=== PATIENT | female | born 1950 | race Caucasian/White ===

== ENCOUNTER 2020-07-22 12:37 | Day surgery (SDC) | payer MEDICARE ==
[2020-07-15 15:47] LABS: BASOPHILS % (AUTO) 0.4 % (0.0-5.0); EOSINOPHILS % (AUTO) 1.7 % (0.0-8.0); HEMATOCRIT 41.4 % (36-48); LYMPHOCYTES % (AUTO) 24.8 % (21.0-51.0); MEAN CORPUSCULAR HEMOGLOBIN 28.5 pg (27.0-33.0); MEAN CORPUSCULAR HGB CONC 32.4 g/dL (32.0-36.0); MEAN CORPUSCULAR VOLUME 88.1 fL (79-99); MONOCYTES % (AUTO) 5.8 % (3.0-13.0); NEUTROPHILS % (AUTO) 66.8 % (40.0-77.0); PLATELET COUNT (AUTO) 450 K/uL (130-400); RED CELL DISTRIBUTION WIDTH 14.3 % (11.0-15.5); WHITE BLOOD COUNT (AUTO) 13.3 K/uL (4.8-10.8)
[2020-07-15 16:09] LABS: CREATININE 0.8 mg/dL (0.5-1.5); POTASSIUM 4.2 mmol/L (3.5-5.1)
--- NOTE | 2020-07-21 11:59 | NUR ---
Reported ekg result to Doctor Vogt , no new orders.
--- NOTE | 2020-07-21 12:57 | NUR ---
DOCTOR TATUM WAS NOTIFIED OF WBC 13.3 AND PLT OF 450. NO NEW ORDERS.
[~2020-07-22] VITALS: Ht 166.4 cm; Wt 94.3 kg
[2020-07-22] VITALS (16 sets, daily range): BP systolic 114–165; BP diastolic 75–92
[~2020-07-22 12:37] MED LIST: ENAL20TA18 PO; FURO20TA4 PO; NORETHINDRONE PO
[2020-07-22] MEDS ORDERED: LACTATED RINGERS 1000ML 1,000 ML IV ONE (13:16)
[2020-07-22] MEDS ORDERED: SUCCINYLCHOLINE CHLORIDE 20 MG/ML 10 ML VIAL ONE (14:05)
[2020-07-22] MEDS ORDERED: LIDOCAINE PF 2% 5ML ABBOJECT ONE (14:05)
[2020-07-22] MEDS ORDERED: PROPOFOL 10 MG/ML 20ML VIAL IV ONE (14:05)
[2020-07-22] MEDS ORDERED: MIDAZOLAM HCL 1 MG/ML 2ML VIAL ONE (14:06)
[2020-07-22] MEDS ORDERED: FENTANYL CITRATE PF 50 MCG/1 ML 2ML VIAL ONE (14:06)
[2020-07-22] MEDS ORDERED: ONDANSETRON HCL 4 MG/2 ML VIAL ONE (14:23)
[2020-07-22] MEDS ORDERED: DEXAMETHASONE SOD PHOSPHATE 10MG/ML 1ML VIAL ONE (14:23)
--- NOTE | 2020-07-22 16:40 | NUR ---
PATIENT DISCHARGED FROM FACILITY VIA WHEELCHAIR BY NURSE. PATIENT ASSISTED INTO PRIVATE VEHICLE DRIVEN BY SPOUSE.
== END 2020-07-22 16:40 | disposition home or self-care (01) ==
LOC: DAH 12:37
PROVIDERS: ATTEND Specialist
DX: N95.0 Postmenopausal bleeding (principal); I10 Essential (primary) hypertension; E66.9 Obesity, unspecified; Z20.828 Contact with and (suspected) exposure to other viral communicable diseases; Z79.899 Other long term (current) drug therapy
CPT/HCPCS: 36415; 58120; 80048; 85025; 93005; A4221; A4222; A4223; A4351; A4663; A6260; C9803; J0330; J1100; J2001; J2250; J2405; J2704; J3010; J7120; U0003

== ENCOUNTER → 2023-07-31 | Outpatient (CLI) | payer MEDICARE ==
[~2023-07-31] MED LIST changes: +ENAL-91 PO; -ENAL20TA18 PO
== END | disposition home or self-care (01) ==
LOC: RAH 10:21
PROVIDERS: ATTEND Internal Medicine Endocrinology, Diabetes & Metabolism
DX: E21.0 Primary hyperparathyroidism (principal)
CPT/HCPCS: 76536

== ENCOUNTER → 2023-08-02 | Outpatient (CLI) | payer MEDICARE | END | disposition home or self-care (01) | LOC: RAH 09:23 | PROVIDERS: ATTEND Internal Medicine Endocrinology, Diabetes & Metabolism | DX: E21.0 Primary hyperparathyroidism (principal) | CPT/HCPCS: 78070; A9500 ==

== ENCOUNTER → 2024-04-17 | Outpatient (CLI) | payer MEDICARE | END | disposition home or self-care (01) | LOC: RAH 12:20 | PROVIDERS: ATTEND Internal Medicine Endocrinology, Diabetes & Metabolism | DX: E04.2 Nontoxic multinodular goiter (principal) | CPT/HCPCS: 76536 ==

== ENCOUNTER → 2024-05-28 | Outpatient (CLI) | payer MEDICARE | END | disposition home or self-care (01) | LOC: RAH 13:32 | PROVIDERS: ATTEND Family Medicine | DX: M16.11 Unilateral primary osteoarthritis, right hip (principal); M25.551 Pain in right hip | CPT/HCPCS: 73502 ==

== ENCOUNTER 2024-06-26 07:51 | Observation (INO) | payer MEDICARE ==
[~2024-06-26] VITALS: Ht 165.1 cm; Wt 91.4 kg
--- NOTE | 2024-06-26 08:06 | EKG ---
[facility] Test Date: 2024-06-26 Test Time: 08:02:09 Pat Name: YOUNG BRADFORD Department: [facility] Room: 204 Gender: F Hourly Team Members: [id number] : 1950 Requested By: REYNA KEYS Order Number: [id number] Reading MD: Sanjuana Baker Measurements Intervals [place] Rate: 67 P: 79 CT: 187 QRS: 43 QRSD: 84 T: 54 QT: 394 QTc: 416 Interpretive Statements Sinus rhythm Compared to ECG 07/15/2020 15:14:44 No significant changes Electronically Signed On 06-28-2024 07:22:48 CDT by Sanjuana Baker Please click the below link to view image of tracing.
--- NOTE | 2024-06-26 08:10 | ERN ---
General Chief Complaint: Dizzy/Light Headed Stated Complaint: DIZZINESS Time Seen by MD: 07:53 History of Present Illness Initial Comments 74 years old female patient with past medical history of Hypertension who presents to the emergency department with complains of dizziness, nauseas, and numbness on the right side of her face. Allergies: Coded Allergies: No Known Drug Allergies (Verified Allergy, Unknown, 07/21/20) Home Meds Reported Medications [Norethindrone] No Conflict Check, 5 MG PO DAILY 07/21/20 Furosemide (Furosemide) 20 Mg Tablet, 20 MG PO DAILY, TAB 07/21/20 Enalapril Maleate (Enalapril Maleate) 20 Mg Tablet, 20 MG PO DAILY, TAB 07/21/20 Past Medical History Past Medical History: Hypertension Past Surgical History: Other ROS Dictation Constitutional: No appetite loss, No fevers, chills , No night sweats, No weakness, fatigue Eye: No vision change, No redness, pain or discharge ENT: No hearing loss, ear pain or discharge, No nose bleeds, No sore throat, Neck: No swelling. pain or stiffness Respiratory: No cough, shortness of breath, wheezing Cardiovascular: No chest pain,, palpitations, dyspnea, No edema Gastrointestinal: Nausea, No abdominal pain, vomiting, No diarrhea, constipation Genitourinary: No painful urination, No blood in urine, No urinary incontinence, No frequency or urgency Musculoskeletal: No joint pain, muscle pain, swelling or stiffness Neurological: dizziness, right side face numbness, No tingling, No weakness, No tremors or seizures Psychiatric: : No depression, No anxiety, No sleep disturbance, No Memory changes Lymphatic: No easy bruising, No bleeding tendencies , No swollen lymph nodes A 13-point Review of Systems was assessed, all of which are negative except for HPI or as indicated above. Physical Exam Physical Exam Dictation General: Alert & Oriented, No acute distress. EENT: No conjunctival redness or discharge noted Tympanic membranes are clear, Normal hearing, Oral mucosa is moist, No pharyngeal erythema, No nasal discharge, No oral lesions. Neck: Non-tender, No jugular vein distention, No lymphadenopathy, No thyromegaly, Supple. Respiratory: Lungs are clear to auscultation, Respirations are non-labored, Breath sounds are equal, No chest wall tenderness, _. Cardiovascular: Normal rate, Normal rhythm, No murmur, Good pulses equal in all extremities, Normal peripheral perfusion, No edema. Gastrointestinal: Soft, Non-tender, Non-distended, Normal bowel sounds, No organomegaly, _. Musculoskeletal: Normal range of motion, Normal strength, No tenderness, No swelling, No deformity, Normal gait. Integumentary: Warm, Dry, [place], Intact, No pallor, No rash. Neurologic: Alert, Oriented x4, Normal sensory, No focal defects Psychiatric: Cooperative, Appropriate mood & affect, Normal judgement, Non- suicidal. Results Laboratory and Microbiology Lab and Micro Result Laboratory Tests Test 06/26/24 08:23 White Blood Count 15.9 K/uL (4.8-10.8) H Red Blood Count 4.56 MIL/uL (4.00-5.50) Hemoglobin 13.2 g/dL (12.0-16.0) Hematocrit 39.8 % (36-48) Mean Corpuscular Volume 87.3 fL (79-99) Mean Corpuscular Hemoglobin 28.9 pg (27.0-33.0) Mean Corpuscular Hemoglobin Concent 33.2 g/dL (32.0-36.0) Red Cell Distribution Width 13.2 % (11.0-15.5) Platelet Count 293 K/uL (130-400) Mean Platelet Volume 9.7 fL (7.5-10.5) Immature Granulocyte % (Auto) 0.5 % (0-1) Neutrophils (%) (Auto) 80.8 % (40.0-77.0) H Lymphocytes (%) (Auto) 13.2 % (21.0-51.0) L Monocytes (%) (Auto) 4.6 % (3.0-13.0) Eosinophils (%) (Auto) 0.6 % (0.0-8.0) Basophils (%) (Auto) 0.3 % (0.0-5.0) Neutrophils # (Auto) 12.9 K/uL (1.8-7.7) H Lymphocytes # (Auto) 2.1 K/uL (1.0-4.8) Monocytes # (Auto) 0.7 K/uL (0.1-1.0) Eosinophils # (Auto) 0.09 K/uL (0.00-0.70) Basophils # (Auto) 0.05 K/uL (0.00-0.20) Absolute Immature Granulocyte (auto 0.08 K/uL (0-1) Nucleated Red Blood Cells 0.0 % (0.0-0.19) Sodium Level 134 mmol/L (136-145) L Potassium Level 4.0 mmol/L (3.5-5.1) Chloride Level 102 mmol/L (101-111) Carbon Dioxide Level 29 mmol/L (21-32) Blood Urea Nitrogen 17 mg/dL (7-18) Creatinine 1.0 mg/dL (0.5-1.0) Glomerular Filtration Rate Calc 60 mL/min (>90) Random Glucose 133 mg/dL (70-105) H Total Calcium 9.9 mg/dL (8.5-10.1) Troponin I High Sensitivity < 4 ng/L (4-50) L MDM MDM Potential differential diagnoses include: * * * * Assessment: I will order a CBC and CMP and administer medications according to the patient's complaint. Will order 1 Liter of LR for adequate hydration, and......... I will re-evaluate the patient after treatment and diagnostic exams have returned to determine whether they require further testing, can be safely discharged home, or need admission for further treatment and evaluation. Given the social determinants of health affecting care, including literacy, acc ess to medical care, prescription drug management, and [id number] drugs, I will ensure that treatment plans are tailored accordingly. Revaluation : Patient is alert and oriented. States she feels a lot better . Disposition: Will discharge patient at this time with prescription of ...... PO and instructions to follow up with PCP for further evaluation and treatment. ED Course Orders Procedure Category Date Status Time 12 Lead Ekg Tracing- EKG 06/26/24 Complete Technical 07:53 Maintain Iv CPOE 06/26/24 Transmitted 07:53 Iv Insertion CPOE 06/26/24 Transmitted 07:53 Cardiac Monitoring CPOE 06/26/24 Transmitted 07:53 Pulse Oximetry With CPOE 06/26/24 Transmitted Vs And Prn 07:53 Cbc With Differential LAB 06/26/24 Complete 07:53 Activity: Br W/Brp CPOE 06/26/24 Transmitted With Assist 07:53 Troponin I High LAB 06/26/24 Complete Sensitivity 07:53 Urinalysis Profile LAB 06/26/24 Logged 07:53 Basic Metabolic Panel LAB 06/26/24 Complete 07:53 Ct Head/Brain W/O CT 06/26/24 Resulted Contrast 08:02 Hydralazine 20mg Inj PHA 06/26/24 Complete (Apresoline 20mg In 08:30 Current Medications Medications (Trade) Dose Ordered Sig/Marcelle Route PRN Reason Start Time Stop Time Status Last Admin Dose Admin Hydralazine HCl (APRESOLine 20MG INJ) 10 mg ONCE ONCE IV 06/26/24 08:30 06/26/24 08:31 DC Vital Signs Date Time Temp Pulse Resp B/P (MAP) Pulse Ox O2 Delivery O2 Flow Rate FiO2 06/26/24 08:00 97.9 72 20 192/89 98 Room Air* 0 21 06/26/24 07:55 98.8 72 20 192/89 99 Room Air DX & DISP Disposition: Inpatient Decision to Admit Date: Jun 26, 2024 Decision to Admit Time: 09:31 Departure Impression: Primary Impression: Hypertensive urgency Additional Impression: Dizziness Condition: Stable Referrals: ADENIKE MUNOZ MD (PCP) AMANDA CONTRERAS MD Jun 26, 2024 08:10 REYNA KEYS MD Jun 26, 2024 09:32
[2024-06-26 08:33] LABS: BASOPHILS # (AUTO) 0.05 K/uL (0.00-0.20); BASOPHILS % (AUTO) 0.3 % (0.0-5.0); EOSINOPHILS # (AUTO) 0.09 K/uL (0.00-0.70); EOSINOPHILS % (AUTO) 0.6 % (0.0-8.0); HEMATOCRIT 39.8 % (36-48); IMMATURE GRANULOCYTE ABSOLUTE 0.08 K/uL (0-1); LYMPHOCYTES # (AUTO) 2.1 K/uL (1.0-4.8); LYMPHOCYTES % (AUTO) 13.2 % (21.0-51.0); MEAN CORPUSCULAR HEMOGLOBIN 28.9 pg (27.0-33.0); MEAN CORPUSCULAR HGB CONC 33.2 g/dL (32.0-36.0); MEAN CORPUSCULAR VOLUME 87.3 fL (79-99); MONOCYTES # (AUTO) 0.7 K/uL (0.1-1.0); MONOCYTES % (AUTO) 4.6 % (3.0-13.0); NEUTROPHILS # (AUTO) 12.9 K/uL (1.8-7.7); NEUTROPHILS % (AUTO) 80.8 % (40.0-77.0); PLATELET COUNT (AUTO) 293 K/uL (130-400); RED BLOOD CELL COUNT(AUTO) 4.56 MIL/uL (4.00-5.50); RED CELL DISTRIBUTION WIDTH 13.2 % (11.0-15.5); WHITE BLOOD COUNT (AUTO) 15.9 K/uL (4.8-10.8)
--- NOTE | 2024-06-26 09:27 | HMCIMG ---
CT HEAD/BRAIN W/O CONTRAST HISTORY: Dizziness COMPARISON: None TECHNIQUE: Multiple sequential axial images of the head were obtained from the base of the skull through vertex. Patient was not given contrast through intravenous route. FINDINGS: The ventricles and extraventricular CSF spaces are dilated consistent with cerebral atrophy. Nonspecific white matter changes seen. There is no midline shift, mass effect or herniation. No acute intracranial bleed is seen. Visualized portion of the paranasal sinuses are grossly within normal limits. IMPRESSION: 1. No acute intracranial bleed is seen. 2. Atrophy with white matter changes. CT was performed with one or more following dose reduction techniques: automated exposure control, adjustment of the mA and kv according to patient's size, or use of a iterative reconstruction technique.
[2024-06-26] MEDS: hydrALAZine 20MG/ML VIAL IV ONE (09:46)
[2024-06-26] MEDS ORDERED: hydrALAZine 20MG/ML VIAL IV PRN (10:00)
[2024-06-26] MEDS ORDERED: doCUSate SODIUM 100 MG CAP PO PRN (10:00)
[2024-06-26] MEDS ORDERED: LAbetaLOL 20MG SYG IV PRN (10:00)
[2024-06-26] MEDS ORDERED: acetaMINOPHEN 650 MG SUPPOSITORY RC PRN (10:00)
[2024-06-26] MEDS: CEFTRIAXONE 2GM VIAL IVPB SCH (10:18)
[2024-06-26] MEDS: hydrALAZine 25MG TABLET PO SCH (10:18)
--- NOTE | 2024-06-26 10:29 | HMCIMG ---
US RENAL SONOGRAM HISTORY: Hypertensive urgency COMPARISON: None TECHNIQUE: Renal and bladder ultrasound study was performed. FINDINGS: The right kidney measures 11.2 x 4.6 x 5.5 cm. The left kidney measures 11.6 x 4.2 x 5.5 cm. No evidence of hydronephrosis is seen of either kidney. Both kidneys are seen. Bladder is poorly distended. IMPRESSION: 1. No hydronephrosis is seen.
--- NOTE | 2024-06-26 10:30 | HMCIMG ---
US CAROTID DUPLEX HISTORY: Dizziness COMPARISON: None TECHNIQUE: Duplex carotid arterial Doppler ultrasound study was performed. FINDINGS: The common, internal and external carotid arteries are visualized. The peak systolic velocities of right common carotid artery is 69 centimeters per second, right internal carotid artery is 88 centimeters per second, right external carotid artery is 84 centimeters per second, and right vertebral artery is 47 centimeters per second. Right internal carotid artery to right common carotid artery ratio is 1.3. Right vertebral artery is seen with antegrade flow. The peak systolic velocities of left common carotid artery is 84 centimeters per second, left internal carotid artery is 113 centimeters per second, left external carotid artery is 73 centimeters per second, and left vertebral artery is 41 centimeters per second. Left internal carotid artery to left common carotid artery ratio is 1.2. Left vertebral artery is seen with antegrade flow. IMPRESSION: 1. No hemodynamically significant lesion is seen of either extracranial carotid artery system.
[2024-06-26 11:22] LABS: APPEARANCE,URINE CLEAR (CLEAR); BILIRUBIN,URINE NEGATIVE (NEGATIVE); COLOR,URINE LIGHT-YELLOW (YELLOW); GLUCOSE, URINE (UA) NEGATIVE (NEGATIVE); KETONES,URINE NEGATIVE (NEGATIVE); LEUKOCYTE ESTERASE ,URINE NEGATIVE Leu/uL (NEGATIVE); NITRATE,URINE NEGATIVE (NEGATIVE); OCCULT BLOOD,URINE NEGATIVE (NEGATIVE); PROTEIN,URINE NEGATIVE (NEGATIVE); UROBILINOGEN,URINE 0.2 mg/dL (0.2-1.0)
[2024-06-26 11:30] LABS: ADD UA MICROSCOPIC NO
[2024-06-26] MEDS: mecliZINE HCL 25 MG TABLET PO ONE (14:09)
[2024-06-26] MEDS: ondanSETRON 4MG INJ IVP ONE (14:09)
[2024-06-26] MEDS ORDERED: ENAL-91 PO (14:34)
[2024-06-26] MEDS: acetaMINOPHEN 325 MG TAB PO PRN (16:42)
--- NOTE | 2024-06-26 17:01 | HP ---
[facility] HISTORY & PHYSICAL Date Patient Seen: Jun 26, 2024 Time of Visit: 17:01 Supervising Physician: Yessi Choudhury MD Primary Care Physician: Holli Bernal MD [facility] Inpatient Consults: Neurology Dr. Brown PROBLEM LIST: Dizziness, POA R/O ischemic CVA Leukocytosis, POA Hyperglycemia, POA Essential hypertension History of bilateral thyroid nodules. Obesity with a BMI of 34.3 Suspected DEB, undiagnosed and untreated HPI: This is a 74-year-old obese female with a history of hypertension, bilateral thyroid nodules who came into the emergency department for dizziness that she fell when she woke up this morning around 3-5 in the morning. Last known normal was 22:30 last night when patient went to sleep. This morning when she open her eyes she felt dizzy and diaphoretic. Denies any chest pain palpitations or shortness of breath. She does however report some nausea due to the dizziness. She also reports some numbness to her right upper lip. No other focal weakness reported. In the emergency department CT of the head was done no acute intracranial findings noted. Per ED physician wanted patient admitted for vertigo and he consulted Neurology. Assessment of the patient she is awake alert and oriented x3 no focal weakness noted. Although she continues with dizziness after taking meclizine and continues with some numbness to her lip. On nose to finger test this seems to be some trouble with coordination to her right hand. Otherwise blood pressure is 148/75 heart rate 86 O2 sat 97% on room air with respirations of 20 unlabored. She has been afebrile since admission. On laboratory patient does have a white count elevated at 15.9 and neutrophils 80.8, sodium 1likely pseudo hyponatremia due to hyperglycemia random [id number] mg/dL troponin was less than four ammonia was normal TSH was 1.04. No hemodynamic instability seen on bilateral ultrasound of the carotids. Pending an MRI of the brain without contrast. PAST MEDICAL HX: Hypertension Bilateral thyroid nodules PAST SURGICAL HX: Postmenopausal bleeding status post D&C in 2019 SOCIAL HISTORY: No tobacco, ETOH, or illicit drug use Coded Allergies: No Known Drug Allergies (Verified Allergy, Unknown, 07/21/20) REVIEW OF SYSTEMS: General: No malaise or fever. Neurological: Yes for dizziness, slight numbness to upper lip. HEENT: No nasal congestion or nasal secretion. Respiratory: No cough, shortness of breath, or wheezing Cardiac: No chest pain or palpitations. Gastrointestinal: No vomiting or diarrhea. Genitourinary: No dysuria hematuria. Skin: No rashes or lesions. Hematological: No bruises or bleeding. Musculoskeletal: No joint pains or arthralgias. Psychiatric: No depression or panic attacks. PHYSICAL EXAM: GENERAL: alert, weak, awake oriented x 3 HEENT: EOMI, Sclera non icteric, moist mucosa NECK: Supple, no JVD, trachea midline LUNGS: Clear breath sounds bilaterally. No wheezes HEART: Regular rate and rhythm. Normal S1 and S2, without murmurs ABD: Abdomen soft, nontender. Bowel sounds present EXT: No clubbing cyanosis or edema NEURO: Alert and oriented to person, follows commands , reports dizziness, numbness to lip, NIH stroke scale : 1A: Level of consciousness: 0 1B: Ask months and age: 0 1C: Blinks eyes and squeezes hand: 0 2: Horizontal extraocular movements: 0 3. : Visual tosc[place]: 0 4.: Facial palsy: 0 5A: Left arm motor drift: 0 5 B: Right arm motor drift: 0 6A: Left leg motor drift: 0 6 B: Right leg motor drift: 0 7.: Limb ataxia: 1 8.: Sensation: 1. 9.: Language aphasia: 0 10.: Dysarthria 0 11.: Extension/inattention: 0 Total: 2 Vital Signs (last 8hr) Date Time Temp Pulse Resp B/P (MAP) Pulse Ox O2 Delivery O2 Flow Rate FiO2 06/26/24 16:00 98.4 79 20 159/78 99 Room Air* 0 21 06/26/24 11:50 97.9 86 20 148/75 97 Room Air* 0 21 06/26/24 10:19 86 20 181/84 98 Room Air* 0 21 06/26/24 09:45 97.9 80 20 176/80 99 Room Air* 0 21 LABS: Hematology Labs: Test 06/26/24 08:23 Range/Units White Blood Count 15.9 H 4.8-10.8 K/uL Red Blood Count 4.56 4.00-5.50 MIL/uL Hemoglobin 13.2 12.0-16.0 g/dL Hematocrit 39.8 36-48 % Mean Corpuscular Volume 87.3 79-99 fL Mean Corpuscular Hemoglobin 28.9 27.0-33.0 pg Mean Corpuscular Hemoglobin Concent 33.2 32.0-36.0 g/dL Red Cell Distribution Width 13.2 11.0-15.5 % Platelet Count 293 130-400 K/uL Mean Platelet Volume 9.7 7.5-10.5 fL Immature Granulocyte % (Auto) 0.5 0-1 % Neutrophils (%) (Auto) 80.8 H 40.0-77.0 % Lymphocytes (%) (Auto) 13.2 L 21.0-51.0 % Monocytes (%) (Auto) 4.6 3.0-13.0 % Eosinophils (%) (Auto) 0.6 0.0-8.0 % Basophils (%) (Auto) 0.3 0.0-5.0 % Neutrophils # (Auto) 12.9 H 1.8-7.7 K/uL Lymphocytes # (Auto) 2.1 1.0-4.8 K/uL Monocytes # (Auto) 0.7 0.1-1.0 K/uL Eosinophils # (Auto) 0.09 0.00-0.70 K/uL Basophils # (Auto) 0.05 0.00-0.20 K/uL Absolute Immature Granulocyte (auto 0.08 0-1 K/uL Nucleated Red Blood Cells 0.0 0.0-0.19 % Chemistry Labs: Test 06/26/24 10:43 06/26/24 08:23 Range/Units Ammonia < 10 L 11-32 umol/L Thyroid Stimulating Hormone (TSH) 1.04 0.36-3.74 uIU/mL Sodium Level 134 L 136-145 mmol/L Potassium Level 4.0 3.5-5.1 mmol/L Chloride Level 102 101-111 mmol/L Carbon Dioxide Level 29 21-32 mmol/L Blood Urea Nitrogen 17 7-18 mg/dL Creatinine 1.0 0.5-1.0 mg/dL Glomerular Filtration Rate Calc 60 >90 mL/min Random Glucose 133 H 70-105 mg/dL Total Calcium 9.9 8.5-10.1 mg/dL Troponin I High Sensitivity < 4 L 4-50 ng/L DIAGNOSTICS / RADIOLOGY RESULTS: PATIENT: ROLDAN BRADFORDZAARCELIA VASQUEZ MR#: [id number] : 1950 SEX: F AGE: 74 LOCATION: ED ORDER 4 STATUS: REG ER REPORT#: [id number] SERVICE 1 REASON: Dizziness ORDERING PHYSICIAN: REYNA KEYS MD PROCEDURE: HEAD WO - CT HEAD/BRAIN W/O CONTRAST CT HEAD/BRAIN W/O CONTRAST HISTORY: Dizziness COMPARISON: None TECHNIQUE: Multiple sequential axial images of the head were obtained from the base of the skull through vertex. Patient was not given contrast through intravenous route. FINDINGS: The ventricles and extraventricular CSF spaces are dilated consistent with cerebral atrophy. Nonspecific white matter changes seen. There is no midline shift, mass effect or herniation. No acute intracranial bleed is seen. Visualized portion of the paranasal sinuses are grossly within normal limits. IMPRESSION: 1. No acute intracranial bleed is seen. 2. Atrophy with white matter changes. CT was performed with one or more following dose reduction techniques: automated exposure control, adjustment of the mA and kv according to patient's size, or use of a iterative reconstruction technique. DICTATED BY: LEIGHTON AQUINO MD DATE: 06/26/24923 ELECTRONICALLY SIGNED BY: LEIGHTON AQUINO MD DATE: 06/26/24926 PLAN Maintain oxygenation above 94% Avoid hypotension Meclizine p.r.n. dizziness Aspirin 325 mg p.o. x1 then 81 mg daily Avoid hypoglycemia neurology recommendations MRI of the brain NS 500 mL x1 bolus Avoid hypotension Lipid panel in a.m. Hemoglobin A1c in a.m. PT for eval and recs NEURO: Minimize central acting medications as possible. Maintain fall precautions, adequate lighting during the day Awaiting neurology recommendations PULMONARY: Supplemental 02 as needed. Maintain aspiration precautions at all times CARDIOVASCULAR: Follow hemodynamics. Vital signs per facility protocol Telemetry monitoring GI & NUTRITION: Continue with nutritional support. Continue stool softeners and laxatives as needed. Heart healthy diet KIDNEYS & ELECTROLYTES: Strict monitoring of intake, output and overall fluid balance. Avoid nephrotoxic medications to the extent possible. Medications to be dosed according to renal function. Monitor electrolytes and replace as needed ENDOCRINE: Maintain blood glucose between 100-180 at all times. Hypoglycemia protocol in place INFECTIOUS DISEASE: Trend temperature, WBC and procalcitonin level Follow cultures, deescalate antibiotics as soon as possible. Panculture if new onset fever UA and urine culture Rocephin 2 g Q 24 hour ONCOLOGY/HEMATOLOGY/COAGULATION: Monitor for s/s of bleeding Monitor hemoglobin, coagulation studies as needed SKIN: Pressure ulcer prevention per facility protocol Specialty mattress ORTHO/REHAB: Continue PT/OT Prophylaxis: Continue GI and DVT prophylaxis Code Status: Full Resuscitation Disposition: TBD Other: Total patient care time exceeds 35 minutes excluding all procedures. JJ SHELDON [facility] Jun 26, 2024 17:01
[2024-06-26] MEDS: ALPRAZolam 0.5 MG TABLET PO ONE (17:16)
[2024-06-26] MEDS: ASPIRIN 325MG EC TAB PO ONE (17:17)
--- NOTE | 2024-06-26 18:41 | HMCIMG ---
MR BRAIN WO CON HISTORY: Dizziness COMPARISON: None TECHNIQUE: MRI of the brain was performed utilizing multiple pulse sequences in axial, coronal and sagittal planes. Patient was not given contrast through intravenous route. FINDINGS: The ventricles and extraventricular CSF spaces are nondilated for patient's age. There is no midline shift, mass effect or herniation. No subacute hemorrhage is seen. No MR evidence of acute infarct is seen in the diffusion weighted images. Cerebellar tonsils are in normal position. No evidence of mucoperiosteal thickening is seen of the visualized paranasal sinuses. No MR evidence of a mass lesion is seen in this noncontrast study. IMPRESSION: 1. No MR evidence of acute infarct is seen in the diffusion weighted images.
[2024-06-26] MEDS: 0.9% NACL 500ML IV.SOLN 500 ML IV SCH (19:30)
[2024-06-26] MEDS ORDERED: mecliZINE HCL 25 MG TABLET PO PRN (19:30)
[2024-06-26 22:05] VITALS: TEMP 98.4
--- NOTE | 2024-06-27 01:43 | HMCIMG ---
CHEST 1VW HISTORY: Sepsis COMPARISON: None FINDINGS: A frontal projection of the chest was obtained. Prominent interstitial markings are seen with possible superimposed infiltrates. The heart is normal in size. Degenerative changes are seen. No evidence of aortic calcification is seen. IMPRESSION: 1. Prominent interstitial markings are seen with possible superimposed infiltrates.
[2024-06-27 04:26] LABS: HEMATOCRIT 38.2 % (36-48); MEAN CORPUSCULAR HEMOGLOBIN 28.9 pg (27.0-33.0); MEAN CORPUSCULAR HGB CONC 32.5 g/dL (32.0-36.0); RED BLOOD CELL COUNT(AUTO) 4.29 MIL/uL (4.00-5.50); RED CELL DISTRIBUTION WIDTH 13.5 % (11.0-15.5); WHITE BLOOD COUNT (AUTO) 12.1 K/uL (4.8-10.8)
[2024-06-27 04:30] VITALS: BP 160/89; PULSE 64; RESP 18; TEMP 98
[2024-06-27 04:52] LABS: CREATININE 0.9 mg/dL (0.5-1.0); POTASSIUM 3.5 mmol/L (3.5-5.1); THYROID STIMULATING HORMONE 1.22 uIU/mL (0.36-3.74)
[2024-06-27] MEDS ORDERED: DEXTROSE 50%-WATER 50 ML DISP.SYRIN IV PRN (07:00)
[2024-06-27] MEDS ORDERED: PoTASSium chl 10% ELIXIR 20MEQ 20 MEQ/15 ML UDCUP PO PRN (07:00)
[2024-06-27] MEDS ORDERED: GLUCAGON 1MG KIT 1 MG ML IM PRN (07:00)
[2024-06-27] MEDS ORDERED: MAGNESIUM 2GM PREMIX 50ML 50 ML IV PRN (07:00)
[2024-06-27] MEDS ORDERED: PoTASSium chloRIDE 20MEQ/100ML 100 ML IV PRN (07:00)
--- NOTE | 2024-06-27 07:18 | CONS ---
CONSULTATION NOTE Date of Service: Jun 27, 2024 Reason for Consultation: EVALUATION OF DIZZINESS Requesting Physician: Hospitalist HISTORY OF PRESENT ILLNESS: This is a marilyn 74 years old right-handed lady that has a past medical history remarkable for obesity and essential hypertension who was admitted for evaluation and management of dizziness. The patient states being in her usual state of health when suddenly the patient started having dizziness. She describes her dizziness as an vertical room spinning sensation that was intermittent and exacerbated by body movement with associated nausea but no vomiting. She denied having any blurry vision headaches upper or lower extremity weakness numbness or tingling sensation. She checked her blood pressure and he was unreadable, took one dose of lisinopril 20 mg once a day and was brought into our emergency room. On arrival her blood pressure was higher than 190 mmHg systolic. The patient was started on antihypertensive medication. A CT scan of the head without contrast was negative for intracranial abnormalities. An MRI of the brain without contrast done yesterday while the patient was still having symptoms was negative for stroke. I was consulted for evaluation and management of dizziness. REVIEW OF SYSTEMS CONSTITUTIONAL: Denies fever, chills, or fatigue. HEAD/FACE: No signs of trauma. EENT: Denies eye pain, blurred vision, double vision, or light sensitivity. RESPIRATORY: Denies shortness of breath, cough, wheezing CARDIOVASCULAR: Denies chest pain, palpitation, syncope GASTROINTESTINAL/ABDOMINAL: Denies abdominal pain, constipation, diarrhea, nausea or vomiting GENITOURINARY: Denies dysuria or hematuria. MUSCULOSKELETAL: Denies joint pain, tenderness, or trauma. INTEGUMENTARY: Denies rash or itchiness NEUROLOGICAL/PSYCH: Positive for dizziness PAST MEDICAL HISTORY: Obesity hypertension PAST SURGICAL HISTORY: Noncontributory PAST SOCIAL HISTORY: No tobacco alcohol recreational drug abuse FAMILY HISTORY: No family history of stroke or seizures Coded Allergies: No Known Drug Allergies (Verified Allergy, Unknown, 07/21/20) PHYSICAL EXAM Mental status: The patient is alert, attentive, and oriented. Speech is clear and fluent with good repetition, comprehension, and naming. Pt recalls 3/3 objects at 5 minutes. Cranial nerves: CN II: Visual toscano are full to confrontation. CN III, IV, : At primary gaze, there is no eye deviation. CN V: Facial sensation is intact to pinprick in all 3 divisions bilaterally. Co rneal responses are intact. CN VII: Face is symmetric with normal eye closure and smile. CN VIII: Hearing is normal to rubbing fingers CN IX, X: Palate elevates symmetrically. Phonation is normal. CN XI: Head turning and shoulder shrug are intact CN XII: Tongue is midline with normal movements and no atrophy. Motor: There is no pronator drift of out-stretched arms. Muscle bulk and tone are normal. Strength is full bilaterally. Reflexes: Reflexes are 2+ and symmetric at the biceps, triceps, knees, and ankles. Plantar responses are flexor. Sensory: Light touch, pinprick, position sense, and vibration sense are intact in fingers and toes. Coordination: Rapid alternating movements and fine finger movements are intact. There is no dysmetria on ynrbye-fw-mhid and fxcz-aofw-bhmf. There are no abnormal or extraneous movements. Romberg is absent. Gait/Stance: Not evaluated NIH stroke scale: 0 Vital Sign (Last 24 Hours) 06/27/24 06/27/24 02:47 04:30 Temp 98.1 Pulse 64 Resp 18 B/P (MAP) 160/89 Pulse Ox 98 O2 Delivery Room Air O2 Flow Rate 0 FiO2 21 Intake & Output (last 24hrs) 06/26/24 06/26/24 06/27/24 15:00 23:00 07:00 Intake Total 200 ml Output Total 200 ml Balance 0 ml LABS: Laboratory: Test 06/27/24 04:11 06/26/24 10:43 06/26/24 10:34 06/26/24 08:23 Range/Units White Blood Count 12.1 H 4.8-10.8 K/uL Red Blood Count 4.29 4.00-5.50 MIL/uL Hemoglobin 12.4 12.0-16.0 g/dL Hematocrit 38.2 36-48 % Mean Corpuscular Volume 89.0 79-99 fL Mean Corpuscular Hemoglobin 28.9 27.0-33.0 pg Mean Corpuscular Hemoglobin Concent 32.5 32.0-36.0 g/dL Red Cell Distribution Width 13.5 11.0-15.5 % Platelet Count 297 130-400 K/uL Mean Platelet Volume 10.0 7.5-10.5 fL Nucleated Red Blood Cells 0.0 0.0-0.19 % Sodium Level 139 136-145 mmol/L Potassium Level 3.5 3.5-5.1 mmol/L Chloride Level 107 101-111 mmol/L Carbon Dioxide Level 27 21-32 mmol/L Blood Urea Nitrogen 11 7-18 mg/dL Creatinine 0.9 0.5-1.0 mg/dL Glomerular Filtration Rate Calc 68 >90 mL/min Random Glucose 101 70-105 mg/dL Hemoglobin A1c 6.0 4.0-6.0 % Estimated Average Glucose (eAG) 126 70-126 mg/dL Total Calcium 9.9 8.5-10.1 mg/dL Phosphorus Level 3.0 2.5-4.9 mg/dL B-Type Natriuretic Peptide 54 0-100 pg/mL Triglycerides Level 122 30-200 mg/dL Cholesterol Level 159 <200 mg/dL LDL Cholesterol 78 0-99 mg/dL HDL Cholesterol 61 35-85 mg/dL Thyroid Stimulating Hormone (TSH) 1.22 0.36-3.74 uIU/mL Ammonia < 10 L 11-32 umol/L Urine Color LIGHT-YELLOW YELLOW Urine Appearance CLEAR CLEAR Urine pH 6.0 5.0-8.0 Urine Specific [place] 1.012 1.001-1.031 Urine Protein NEGATIVE NEGATIVE mg/dL Urine Glucose (UA) NEGATIVE NEGATIVE mg/dL Urine Ketones NEGATIVE NEGATIVE mg/dL Urine Occult Blood NEGATIVE NEGATIVE Urine Nitrate NEGATIVE NEGATIVE Urine Bilirubin NEGATIVE NEGATIVE mg/dL Urine Urobilinogen 0.2 0.2-1.0 mg/dL Urine Leukocyte Esterase NEGATIVE NEGATIVE Rory/uL Immature Granulocyte % (Auto) 0.5 0-1 % Neutrophils (%) (Auto) 80.8 H 40.0-77.0 % Lymphocytes (%) (Auto) 13.2 L 21.0-51.0 % Monocytes (%) (Auto) 4.6 3.0-13.0 % Eosinophils (%) (Auto) 0.6 0.0-8.0 % Basophils (%) (Auto) 0.3 0.0-5.0 % Neutrophils # (Auto) 12.9 H 1.8-7.7 K/uL Lymphocytes # (Auto) 2.1 1.0-4.8 K/uL Monocytes # (Auto) 0.7 0.1-1.0 K/uL Eosinophils # (Auto) 0.09 0.00-0.70 K/uL Basophils # (Auto) 0.05 0.00-0.20 K/uL Absolute Immature Granulocyte (auto 0.08 0-1 K/uL Troponin I High Sensitivity < 4 L 4-50 ng/L DIAGNOSTICS / RADIOLOGY: MRI of the brain without contrast: Negative for stroke ASSESSMENT / PLAN: 1).- Hypertensive emergency - based on the patient's history and physical examination it is likely this patient had a hypertensive emergency. The patient's blood pressure at home was more than 200 mmHg systolic in association with room spinning sensation. On arrival her blood pressure was still in the 190s mmHg and during the hospital stay the patient's diastolic blood pressure was more than 110 mmHg. The patient's symptoms completely resolved when the blood pressure improved and at this moment the patient's symptoms are completely negative. MRI of the brain without contrast was negative for stroke. It is unlikely to be a TIA mostly because the patient's symptoms were not associated with any other neurological symptoms and it resolved when her BP was controlled. Other less likely diagnosis includes peripheral vertigo. No further tests are needed from the neurological standpoint. If the patient's symptoms return today then request a CTA head and neck. Blood pressure goal less than 130/80 mm of mercury. LDL goal less than 70 hemoglobin A1c goal less than 7%. Thank you for your consultation. I will sign off MONTRELL IBRAHIM MD Jun 27, 2024 07:18
[2024-06-27 08:07] VITALS: BP 150/82; PULSE 75; RESP 16; TEMP 97.6
[2024-06-27 08:15] VITALS: O2SAT 96
[2024-06-27] MEDS: LISINOPRIL 40 MG TABLET PO SCH (09:53)
[2024-06-27] MEDS: ASPIRIN 81MG CHEW TAB PO SCH (09:54)
[2024-06-27] MEDS: PoTASSium chloRIDE 20MEQ ER 20 MEQ ERTAB PO PRN (09:54)
[2024-06-27 11:07] LABS: SARS-CoV-2, RNA, NAAT NEGATIVE SARS CoV-2 (NEGATIVE)
[2024-06-27 11:12] LABS: INFLUENZA TYPE A Negative For Type A (NEGATIVE); INFLUENZA TYPE B Negative For Type B (NEGATIVE)
[2024-06-27] MEDS: amLODIPine 5 MG TAB PO SCH (11:40)
[2024-06-27 11:46] VITALS: BP 160/70; PULSE 68; RESP 16; TEMP 98.2
--- NOTE | 2024-06-27 15:34 | HMCSR ---
APPROVED REPORT EXAM: Two-dimensional and M-mode echocardiogram with Doppler and color Doppler. Study Details: Hx: HTN INDICATION ICD: Rule out congestive heart failure, dizziness, assess for PFO Contrast Details Indication: Rule out ASD Agent/Amount Used: Agitated Saline 2D Dimensions RVDd3.1 cmLVEF(%)56.8 (>50%)LVED Vol(simp.)59.4 mL IVSd0.7 (0.7-1.1cm)FS(%)30 %LVES Vol(simp.)23.0 mL LVDd4.4 (3.8-5.6cm)LA (2D)3.9 (1.6-4.0cm)LVEF(%, simp.)61 % PWd0.8 (0.7-1.1cm)Ao Root(2D)3.2 (2.0-3.7cm)LA ESV INDEX (4CH)20.90 mL/m2 IVSs1.1 cmLVOT diam2.2 (1.8-2.4cm)LA ESV INDEX (2CH)32.10 mL/m2 LVDs3.1 (2.5-4.0cm) PWs1.3 cm Deformation Strain Apical 420.0 % Apical 224.0 % Apical 324.0 % Global Edifnx16.0 % M-Mode Dimensions EPSS0.9 cm LA (MM)4.0 (1.6-4.0cm) Ao Root(MM)2.7 (2.0-3.7cm) Aortic Valve AoV VTI0.3 mAo Mean GR4.0 mmHgLVOT VTI0.15 m VICENTE (VMAX)1.7 cm2AVA (VTI) 1.7 cm2 Mitral Valve MV E Vmax84.9 cm/sDECEL Mgiq529 ms MV A Jenh862.7 cm/sP 1/2 T78 ms E/A ratio0.7MVA (PHT)2.8 cm2 MR Max PG22 mmHg TDI E/E' Albfke66.0E/E' Eqcirru63.3 Medial E' Peak V5.00 cm/sLateral E' Peak V6.90 cm/s Pulmonary Valve PV Vmax0.6 m/s PV Peak GR1.6 mmHg Left Ventricle The left ventricle is normal size. GLS -23.0%. There is normal left ventricular wall thickness. LVEF is 60-65%. The left ventricular diastolic function is normal. Right Ventricle The right ventricle is normal size. The right ventricular systolic function is normal. Atria The left atrium size is normal. Negative bubble study. No evidence of PFO/ASD by agitated saline. The right atrium size is normal. Aortic Valve The aortic valve is normal in structure. No aortic regurgitation is present. There is no aortic valvu lar stenosis. Mitral Valve The mitral valve is normal in structure. There is no mitral valve regurgitation noted. There is no mi tral valve stenosis. Tricuspid Valve The tricuspid valve is normal in structure. There is no tricuspid valve regurgitation noted. Pulmonic Valve The pulmonary valve is normal in structure. There is no pulmonic valvular regurgitation. Great Vessels The aortic root is normal in size. The IVC is normal in size and collapses >50% with inspiration. Pericardium There is no pericardial effusion. Conclusion The left ventricle is normal size. LVEF is 60-65%. The left ventricular diastolic function is normal. The right ventricle is normal size. The right ventricular systolic function is normal. The left atrium size is normal. The right atrium size is normal. No valvular pathology. Negative bubble study. No evidence of PFO/ASD by agitated saline. There is no pericardial effusion.
[2024-06-27 16:00] VITALS: BP 151/73; PULSE 83; RESP 16; TEMP 98.6
[2024-06-27] MEDS ORDERED: AMLO5TAB4 PO (17:24)
--- NOTE | 2024-06-27 17:30 | DS ---
[facility] DISCHARGE SUMMARY Date Patient Seen: Jun 27, 2024 Time of Visit: 17:30 Supervising Physician: Dr. Whiting Primary Care Physician: Dr. Holli Bernal Inpatient Consults: Dr. Brown-Neurology HOSPITAL COURSE: HPI (per admitting provider) This is a 74-year-old obese female with a history of hypertension, bilateral thyroid nodules who came into the emergency department for dizziness that she fell when she woke up this morning around 3-5 in the morning. Last known normal was 22:30 last night when patient went to sleep. This morning when she open her eyes she felt dizzy and diaphoretic. Denies any chest pain palpitations or shortness of breath. She does however report some nausea due to the dizziness. She also reports some numbness to her right upper lip. No other focal weakness reported. In the emergency department CT of the head was done no acute intracranial findings noted. Per ED physician wanted patient admitted for vertigo and he consulted Neurology. Assessment of the patient she is awake alert and oriented x3 no focal weakness noted. Although she continues with dizziness after taking meclizine and continues with some numbness to her lip. On nose to finger test this seems to be some trouble with coordination to her right hand. Otherwise blood pressure is 148/75 heart rate 86 O2 sat 97% on room air with respirations of 20 unlabored. She has been afebrile since admission. On laboratory patient does have a white count elevated at 15.9 and neutrophils 80.8, sodium 1likely pseudo hyponatremia due to hyperglycemia random [id number] mg/dL troponin was less than four ammonia was normal TSH was 1.04. No hemodynamic instability seen on bilateral ultrasound of the carotids. Pending an MRI of the brain without contrast. The patient was treated for the following problems: ACTIVE PROBLEM LIST FOR THE HOSPITALIZATION: Hypertensive emergency on admission, resolved Hypertensive encephalopathy, resolved Acute CVA RULED OUT Essential hypertension, poorly controlled -Pt will continue on her home dose of enalapril 20mg po daily -We will add amlodipine 5mg po daily -Pt advised to follow up with her PCP in 2-3 days to evaluate the effectiveness of the current regimen Suspected DEB, undiagnosed and untreated -Recommend a sleep study as outpatient CHRONIC PROBLEMS: continue previous management per PCP unless otherwise indicated History of bilateral thyroid nodules, pending outpatient evaluation with endocrinology Obesity with a BMI of 34.3 Pt hemodynamically stable and afebrile at time of discharge. PCP notified of patients admission, hospital course and discharge. New Medications: Amlodipine Besylate (Norvasc 5Mg Tab) 5 Mg Tablet 5 MG PO DAILY, #30 TAB Continued Medications: Enalapril Maleate (Enalapril Maleate) 20 Mg Tablet 20 MG PO DAILY, TAB Furosemide (Furosemide) 20 Mg Tablet 20 MG PO DAILY, TAB [Norethindrone] () 5 MG PO DAILY Discontinued Medications: Enalapril Maleate (Enalapril Maleate) 20 Mg Tablet 20 MG PO DAILY, TAB PHYSICAL EXAM: GENERAL: alert, weak, awake oriented x 3 HEENT: EOMI, Sclera non icteric, moist mucosa NECK: Supple, no JVD, trachea midline LUNGS: Clear breath sounds bilaterally. No wheezes HEART: Regular rate and rhythm. Normal S1 and S2, without murmurs ABD: Abdomen soft, nontender. Bowel sounds present EXT: No clubbing cyanosis or edema NEURO: Alert and oriented to person, follows commands FOLLOW-UP: Follow-up with PCP in 2-3 days RECOMMENDATIONS: See Discharge Instructions This case was seen and discussed with my supervising physician. More than 30 minutes spent on discharge process, including evaluation of the patient, discussion with nursing staff, medication reconciliation and follow-up appointments YOUNG DILL NP Jun 27, 2024 17:30
== END 2024-06-27 18:33 | disposition home or self-care (01) ==
LOC: EDH 07:51 → INTOOBSV 09:32 → EDHIP 09:32 → 2AH 06-27 00:49
PROVIDERS: ADMIT Internal Medicine Critical Care Medicine; ATTEND Internal Medicine Critical Care Medicine
DX: I16.1 Hypertensive emergency (principal); Z20.822 Contact with and (suspected) exposure to COVID-19; R42 Dizziness and giddiness; I65.23 Occlusion and stenosis of bilateral carotid arteries; R11.0 Nausea; R20.0 Anesthesia of skin; E66.9 Obesity, unspecified; R73.9 Hyperglycemia, unspecified; R55 Syncope and collapse; I10 Essential (primary) hypertension; D72.829 Elevated white blood cell count, unspecified; E87.1 Hypo-osmolality and hyponatremia; M79.89 Other specified soft tissue disorders; R60.0 Localized edema; E04.2 Nontoxic multinodular goiter; Z68.34 Body mass index [BMI] 34.0-34.9, adult; Z79.82 Long term (current) use of aspirin; Z79.899 Other long term (current) drug therapy
CPT/HCPCS: 99285; 84443 ×2; 84484; 80048 ×2; 82140; 85025; 81003; 36415 ×2; 70450; 76770; 93880; 70551; 96365; 96366 ×2; 96375; 93005; 83036; 83735; 84100; 80061; 83880; 85027; 87804 ×2; 82306; 82607; 87635; 71045; 93356; 84145; G0378; J0696 ×2; J0360; J2405; C8929; A4216; 93306

== ENCOUNTER → 2024-10-29 | Outpatient (CLI) | payer MEDICARE ==
[~2024-10-29] MED LIST changes: +AMLO5TAB4 PO
--- NOTE | 2024-10-29 10:29 | HMCIMG ---
-US THYROID/NECK REASON: NONTOXIC MULTINODULAR GOITER COMPARISON: 04/17/2024 TECHNIQUE: Routine thyroid sonogram was performed and compared to prior exam. FINDINGS: There is heterogeneous thyroid parenchyma. Right lobe is 1.3 x 1.6 x 4.1 cm, left 1.3 x 1.5 x 3.5 cm. There are several subcentimeter nodules in the right lobe. These include a 6 x 7 mm nodule in the upper pole and a 7 x 7 mm nodule lower pole, these are both stable compared to previous exam. There is a 5 x 7 mm nodule midportion right lobe which was not visualized with certainty on the previous exam. Left lobe shows a 10 x 10 mm nodule upper pole, unchanged. There is a 12 x 13 mm hypoechoic nodule in the lower pole, also unchanged. There is a 7 mm nodule also the lower pole which was not described on previous exam. IMPRESSION: 1. Findings consistent with multinodular goiter. 2. The larger nodules in each lobe are stable compared to previous exam.
== END | disposition home or self-care (01) ==
LOC: RAH 09:21
PROVIDERS: ATTEND Internal Medicine Endocrinology, Diabetes & Metabolism
DX: E04.2 Nontoxic multinodular goiter (principal)
CPT/HCPCS: 76536